=== PATIENT | male | born 1985 | race Caucasian/White ===

== ENCOUNTER → 2021-05-02 01:08 | Outpatient (CLI) | payer OTHER, SELFPAY ==
[2021-05-02 18:20] LABS: Influenza A QL RT-PCR Negative (Negative); Influenza B QL RT-PCR Negative (Negative); SARS-CoV-2 RNA PCR Positive
== END ==
PROVIDERS: PCP Family Medicine; Visit Provider Physician Assistant
DX: R50.9 Fever, unspecified (principal); U07.1 COVID-19
CPT/HCPCS: 87502; 87804; C9803; U0003; U0005

== ENCOUNTER → 2021-09-01 08:24 | Outpatient (CLI) | payer SELFPAY ==
--- NOTE | ~2021-09-01 | XR_ITS ---
EXAMINATION: XR lumbar spine min 4V DATE: 09/01/2021 08:59 INDICATION: Low back pain TECHNIQUE: Anteroposterior, lateral, and bilateral oblique views of the lumbar spine, and cone-down l ateral view of the lumbosacral junction were obtained. COMPARISON: None. FINDINGS: There is no fracture, dislocation, or subluxation. The vertebral body heights and intervert ebral disc spaces are maintained. The bowel gas pattern is normal. Likely embolization coils are seen in the left abdomen. IMPRESSION: 1. Unremarkable lumbar spine. Reviewed, dictated and finalized at location A.
== END ==
PROVIDERS: PCP Family Medicine; Visit Provider Physician Assistant
DX: M54.9 Dorsalgia, unspecified (principal)
CPT/HCPCS: 72110